=== PATIENT | male | born 1950 | race Caucasian/White ===

== ENCOUNTER 2022-05-12 07:50 | Day surgery (SDC) | payer MEDICARE, OTHER ==
[~2022-05-12 07:50] MED LIST: Lactated Ringers 1,000 ML IV SCH; ceFAZolin 2 GM in Premix Bag 1 BAG IV ONE
[2022-05-12] MEDS ORDERED: Albuterol 0.083% 2.5 MG/3 ML Neb Soln NEB PRN (08:15)
[2022-05-12] MEDS ORDERED: HYDROmorphone 1 MG/ML Syringe IVPUSH PRN (08:15)
[2022-05-12] MEDS ORDERED: fentaNYL 50 MCG/ML SDV IVPUSH PRN (08:15)
[2022-05-12] MEDS ORDERED: Metoclopramide 10 MG/2 ML SDV IVPUSH PRN (08:15)
[2022-05-12] MEDS ORDERED: Ondansetron 4 MG/2 ML SDV IVPUSH PRN ×2 (08:15→12:30)
[2022-05-12] MEDS ORDERED: Naloxone 0.4 MG/ML SDV IVPUSH PRN (08:15)
[2022-05-12] MEDS ORDERED: fentaNYL 250 MCG/5 ML SDV ONE (10:15)
[2022-05-12] MEDS ORDERED: Propofol 200 MG/20 ML SDV ONE (10:15)
[2022-05-12] MEDS ORDERED: ceFAZolin 1 GM Vial ONE (10:18)
[2022-05-12] MEDS ORDERED: Bupivacaine 0.5% 10 ML SDV ONE (10:18)
[2022-05-12] MEDS ORDERED: Ropivacaine 0.5% 5 MG/ML 30 ML SDV ONE (10:31)
[2022-05-12] MEDS ORDERED: Acetaminophen 325 MG Tab PO PRN (12:30)
[2022-05-12] MEDS ORDERED: Lactated Ringers 1,000 ML IV SCH (12:30)
[2022-05-12] MEDS ORDERED: oxyCODONE 5 MG Tab PO PRN (12:31)
== END 2022-05-12 16:02 | disposition home or self-care (01) ==
LOC: MW.SDS 07:50
PROVIDERS: ATTEND Surgery
DX: K40.90 Unilateral inguinal hernia, without obstruction or gangrene, not specified as recurrent (principal); N52.9 Male erectile dysfunction, unspecified; Z79.82 Long term (current) use of aspirin
CPT/HCPCS: 49505; C1781; J0690; J2704; J2795; J3010; J3490; J7120; 00830; 64486; 99100